=== PATIENT | male | born 1985 | race Caucasian/White ===

== ENCOUNTER 2024-06-26 16:21 | Emergency (ER) | payer OTHER, SELFPAY ==
--- NOTE | 2024-06-26 16:32 | XRR_ITS ---
PROCEDURE INFORMATION: Exam: XR Chest Exam date and time: 06/26/2024 4:43 PM Age: 38 years old Clinical indication: Pain; Chest pressure; Additional info: Cp TECHNIQUE: Imaging protocol: Radiologic exam of the chest. Views: 1 view. COMPARISON: No relevant prior studies available. FINDINGS: Lungs: Unremarkable. No consolidation. Pleural spaces: Unremarkable. No pleural effusion. No pneumothorax. Heart/Mediastinum: Mild cardiomegaly. Bones/joints: Unremarkable. XR/XR chest 1V portable [id number] IMPRESSION: As above.
--- NOTE | 2024-06-26 16:33 | ECG_ITS ---
[facility] Test Date: 2024-06-26 Pat Name: Robert Saavedra Department: Room: Gender: Male [employer]: : 1985 Requested By: Lorne Esquivel Order Number: [id number] Frey MD: Jeffrey Martinez M.D. Measurements Intervals Olivia Rate: 88 P: 66 VT: 162 QRS: 18 QRSD: 93 T: 34 QT: 350 QTc: 424 Interpretive Statements SINUS RHYTHM No previous ECG available for comparison Electronically Signed On 06-26-2024 16:49:10 [employer]ARK WORK[employer] by Jeffrey Martinez M.D. [id number]
[2024-06-26 16:37] VITALS: BP 139/80; PULSE 86; RESP 17; TEMP 37.1; O2SAT 97; BMI 41.1
--- NOTE | 2024-06-26 17:12 | ED_ITS ---
HPI - Chest Pain 2 General: Chief Complaint: Chest Pain Stated Complaint: chest pain Time Seen by Provider: 06/26/24 16:45 History of Present Illness: 38-year-old male presents emergency room complaining of chest discomfort began yesterday while he was running around with his dogs seem to get better after he stopped. He has not had any recurrence since then he describes it more of a pressure. Last night while at rest he had some nausea a little bit of diaphoresis briefly some discomfort in the left arm but no recurrence. He has not had any further episodes he has no known cardiac history no previous evaluation. Patient is not known to be diabetic. Does have some borderline blood pressure issues. He is not having any chest discomfort at this time Associated symptoms: Deny abdominal pain, dyspnea or fever(s) Related Data Home Medications Medication Instructions Recorded Confirmed Bacillus coagulans 2 billion 1 tab PO DAILY 06/26/24 06/26/24 cell-vitamin D3 5 mcg chewable tablet (Probiotic (with Vitamin D3)) bupropion HCl 300 mg 24 hr tablet, 300 mg PO DAILY 06/26/24 06/26/24 extended release calcium 333 mg 1 tab PO DAILY 06/26/24 06/26/24 (carbonate)-magnesium 133 mg (oxide)-zinc 5 mg tablet cetirizine 10 mg tablet (Zyrtec) 10 mg PO DAILY PRN allergies 06/26/24 06/26/24 omega 0-gnd-bic-fish oil 1,000 mg 1 cap PO DAILY 06/26/24 06/26/24 (120 mg-180 mg) capsule (Fish Oil) omeprazole 20 mg tablet,delayed 20 mg PO DAILY 06/26/24 06/26/24 release Previous Rx's Medication Instructions Recorded ibuprofen 600 mg tablet 600 mg PO Q8H PRN pain #60 tabs 06/27/22 aspirin 81 mg tablet,delayed 81 mg PO DAILY #30 tabs 06/26/24 release Allergies Allergy/AdvReac Type Severity Reaction Status Date / Time No Known Allergies Allergy Unverified 06/27/22 16:03 Review of Systems 2 Const: Denies: fever(s) or chills Card: Reports: chest pain Resp: Denies: dyspnea GI: Denies: abdominal pain : Denies: dysuria, urinary frequency or urinary urgency Musc: Denies: neck pain or back pain Skin/Breast: Denies: rash PFSH ED 2 PFSH: Social History Smoking and tobacco/nicotine status: never used tobacco/nicotine Alcohol intake: never Substance/Drug Use: never Physical Exam 2 Const: COMMON NORMALS: no acute distress GENERAL APPEARANCE: cooperative and comfortable ORIENTATION/CONSCIOUSNESS: Yes awake, Yes oriented to person, Yes oriented to place and Yes oriented to time HENMT: COMMON NORMALS: normocephalic, atraumatic and hearing grossly normal bilaterally HEAD & SCALP: normocephalic and atraumatic Resp: COMMON NORMALS: normal respiratory effort, No retractions, No use of accessory muscles and clear to auscultation bilaterally AUSCULTATION: clear to auscultation bilaterally Cardio: COMMON NORMALS: regular rate, regular rhythm and No murmurs present (Cardio) RATE: regular rate RHYTHM: regular rhythm GI: COMMON NORMALS: Soft to palpation and No hepatosplenomegaly present A USCULTATION: Yes normoactive bowel sounds PALPATION: Yes Soft to palpation, No Tenderness to palpation present (GI), No Guarding due to palpation present (GI) and Yes No hepatosplenomegaly present Extremity: COMMON NORMALS: normal to inspection, capillary refill normal, no clubbing, cyanosis or edema, no calf tenderness and no pedal edema Neuro: SENSORIUM/ORIENTATION: Yes oriented to person, Yes oriented to place and Yes oriented to time Skin: COMMON NORMALS: no rashes or lesions noted GENERAL SKIN EXAM: no rashes or lesions noted Course 2 Vital Signs: Vital signs: Vital Signs Temperature 98.8 F 06/26/24 16:37 Pulse Rate 89 06/26/24 20:15 Respiratory Rate 16 06/26/24 20:15 Blood Pressure 153/82 06/26/24 20:15 Pulse Oximetry 97 06/26/24 20:15 Oxygen Delivery Me thod Room Air 06/26/24 19:13 MDM - Chest Pain Medical Decision Making EKG does not show any acute ST changes reviewed as found in the chart cardiac enzymes trending negative. Will discharge patient home continue current medications also have him start baby aspirin daily and set him up for an outpatient stress test return if his further problems. Lab Data 06/26/24 17:11 06/26/24 17:11 Radiology Impressions Chest X-Ray 06/26/24 16:32 IMPRESSION: As above. Laboratory Results WBC 10.87 10^3/uL (3.29-11.43) 06/26/24 17:11 RBC 5.33 10^6/uL (3.85-5.65) 06/26/24 17:11 Hgb 16.40 g/dL (11.27-16.99) 06/26/24 17:11 Hct 49.2 % (37-53) 06/26/24 17:11 MCV 92.3 fl (82-101) 06/26/24 17:11 MCH 30.8 pg (27-33) 06/26/24 17:11 MCHC 33.3 g/dL (30-55) 06/26/24 17:11 RDW 11.9 % (12.1-15.1) L 06/26/24 17:11 Plt Count 275 10^3/cmm (157-399) 06/26/24 17:11 MPV 9.0 fL (7.4-10.4) 06/26/24 17:11 Neut % (Auto) 67.2 % 06/26/24 17:11 Lymph % (Auto) 23.0 % 06/26/24 17:11 Nuckolls % (Auto) 6.8 % 06/26/24 17:11 Eos % (Auto) 1.9 % 06/26/24 17:11 Baso % (Auto) 0.5 % 06/26/24 17:11 Neut # (Auto) 7.30 10^3/uL (1.8-7.7) 06/26/24 17:11 Lymph # (Auto) 2.5 10^3/uL (0.8-4.8) 06/26/24 17:11 Nuckolls # (Auto) 0.7 10^3/uL (0.2-0.9) 06/26/24 17:11 Eos # (Auto) 0.2 10^3/uL (0.0-0.8) 06/26/24 17:11 Baso # (Auto) 0.1 10^3/uL (0.0-0.1) 06/26/24 17:11 Nucleated RBC % (auto) 0 % 06/26/24 17:11 Nucleated RBCs # 0.0 /100WBC 06/26/24 17:11 Sodium 138 mmol/L (136-145) 06/26/24 17:11 Potassium 3.6 mmol/L (3.5-5.1) 06/26/24 17:11 Chloride 101 mmol/L (98-107) 06/26/24 17:11 Carbon Dioxide 24 mmol/L (22-29) 06/26/24 17:11 Anion Gap 16.6 (5-19) 06/26/24 17:11 BUN 15 mg/dL (6-20) 06/26/24 17:11 Creatinine 0.7 mg/dL (0.7-1.2) 06/26/24 17:11 GFR Calculation 127.6 mL/min (90-130) 06/26/24 17:11 Glucose 84 mg/dL (65-115) 06/26/24 17:11 Calculated Osmolality 286 mOsm/kg (285-295) 06/26/24 17:11 Calcium 9.6 mg/dL (8.5-10.5) 06/26/24 17:11 Total Bilirubin 0.3 mg/dL (0.15-1.2) 06/26/24 17:11 AST 23 U/L (0-40) 06/26/24 17:11 ALT 44 U/L (0-41) H 06/26/24 17:11 Alkaline Phosphatase 101 U/L (40-130) 06/26/24 17:11 Troponin T Baseline 7 ng/L (0-15) 06/26/24 17:11 Troponin T 120 Minute 7.62 ng/L (0-15) 06/26/24 19:14 Delta Troponin T 0.62 ABS# (0-10) 06/26/24 19:14 Total Protein 7.8 g/dL (6.6-8.7) 06/26/24 17:11 Albumin 4.5 g/dL (3.5-5.2) 06/26/24 17:11 Globulin 3.3 g/dL (1.3-4.6) 06/26/24 17:11 All radiology interpretation(s) finalized by discharge Discharge Plan Discharge Patient Disposition: Home Clinical Impression: Atypical chest pain, Elevated blood pressure reading Condition: Stable Prescriptions: New aspirin 81 mg tablet,delayed release (DR/EC) 81 mg PO DAILY Qty: 30 0RF No Action ibuprofen 600 mg tablet 600 mg PO Q8H PRN (Reason: pain) Qty: 60 0RF cetirizine [Zyrtec] 10 mg Tablet 10 mg PO DAILY PRN (Reason: allergies) omeprazole 20 mg Tablet,Delayed Release (Dr/Ec) 20 mg PO DAILY omega 9-byh-nwk-fish oil [Fish Oil] 1,000 (120-180) mg Capsule 1 cap PO DAILY calcium carb-mag ox-zinc gluc 333-133-5 mg Tablet 1 tab PO DAILY Probiotic (with Vitamin D3) 2 billion cell- 5 mcg Tablet,Chewable 1 tab PO DAILY bupropion HCl 300 mg tablet extended release 24 hr 300 mg PO DAILY Discharge Orders: Discharge ED (Routine); Ordered 06/26/24 Ordered By: Jay Wu Referrals: Tomasa Orellana FNP [Primary Care Provider] - Discharge Diet: Usual diet Discharge Activity: Resume usual activity Patient Instructions: Opioid Safety, Pain Management Activity Restrictions/Additional Instructions: Thank you for choosing [facility] for your healthcare needs today. It is very important that you follow up as instructed or that you return to the Emergency Department should you have concerns or if your condition changes or worsens in any way. You were seen in the emergency room with complaints of chest discomfort. Your cardiac enzymes and EKG did not show any acute changes. Will discharge home and set up an outpatient stress test. Return if you have further problems. Coding Level of Care Code ED Instrument Person for Scar George
[2024-06-26 17:35] LABS: Basophils # 0.1 10^3/uL (0.0-0.1); Basophils % 0.5 %; Eosinophils # 0.2 10^3/uL (0.0-0.8); Eosinophils % 1.9 %; Hematocrit 49.2 % (37-53); Lymphocytes # 2.5 10^3/uL (0.8-4.8); Mean Corpuscular HGB Conc 33.3 g/dL (30-55); Mean Corpuscular Hemoglobin 30.8 pg (27-33); Mean Corpuscular Volume 92.3 fl (82-101); Monocytes # 0.7 10^3/uL (0.2-0.9); Monocytes % 6.8 %; Neutrophils % 67.2 %; Nucleated Red Blood Cells % 0 %; Platelet Count 275 10^3/cmm (157-399); Red Blood Count 5.33 10^6/uL (3.85-5.65); Red Cell Distribution Width 11.9 % (12.1-15.1); White Blood Count 10.87 10^3/uL (3.29-11.43)
[2024-06-26 17:53] LABS: Alanine Aminotransferase 44 U/L (0-41); Albumin Level 4.5 g/dL (3.5-5.2); Alkaline Phosphatase 101 U/L (40-130); Anion Gap 16.6 (5-19); Aspartate Amino Transferase 23 U/L (0-40); Blood Urea Nitrogen 15 mg/dL (6-20); Calcium 9.6 mg/dL (8.5-10.5); Carbon Dioxide 24 mmol/L (22-29); Chloride 101 mmol/L (98-107); Creatinine Clr Calc Pharmacy 197.8319; Globulin 3.3 g/dL (1.3-4.6); Glomerular Filtration Rate 127.6 mL/min (90-130); Glucose 84 mg/dL (65-115); Osmolality Calculated 286 mOsm/kg (285-295); Potassium 3.6 mmol/L (3.5-5.1); Sodium 138 mmol/L (136-145); Total Bilirubin 0.3 mg/dL (0.15-1.2); Total Protein 7.8 g/dL (6.6-8.7)
[2024-06-26 18:17] LABS: Troponin(5th) Baseline 7 ng/L (0-15)
[2024-06-26 18:35] VITALS: BP 161/67; PULSE 89; O2SAT 94
[2024-06-26 19:13] VITALS: BP 153/93; PULSE 78; RESP 15; O2SAT 100
[2024-06-26 19:37] LABS: Troponin 5 2HR 7.62 ng/L (0-15); Troponin 5 2HR Delta 0.62 ABS# (0-10)
[2024-06-26 20:15] VITALS: BP 153/82; PULSE 89; RESP 16; O2SAT 97
--- NOTE | 2024-06-29 16:39 | DCPLANNER ---
faxed outpatient stress test order to 06/29.
== END 2024-06-26 20:15 | disposition home or self-care (01) ==
PROVIDERS: Emergency Provider Family Medicine; PCP Nurse Practitioner Family
DX: R07.89 Other chest pain (principal); R03.0 Elevated blood-pressure reading, without diagnosis of hypertension
CPT/HCPCS: 36415; 71045; 80053; 84484; 85025; 93005; 99285